=== PATIENT | male | born 1970 | race American Indian/Alaskan Native ===

== ENCOUNTER 2020-09-25 05:59 | Day surgery (SDC) | payer OTHER ==
[2020-09-25] MEDS ORDERED: LACTATED RINGERS 1,000 ML IV SCH (06:15)
[2020-09-25] MEDS ORDERED: BACTERIOSTATIC SODIUM CHLORIDE 0.9% 30 ML VIAL INFILTRATI ONE (06:17)
[2020-09-25] MEDS ORDERED: EPINEPHrine 30 MG/30 ML INJ IV ONE (07:07)
[2020-09-25] MEDS ORDERED: BUPIVACAINE-EPINEPHRINE/PF 0.5%-1:200,000 (30 ML) VIAL INFILTRATI ONE (07:11)
[2020-09-25] MEDS ORDERED: LIDOCAINE (1%) 10 MG/1 ML VIAL 20 ML MDV ONE (07:11)
[2020-09-25] MEDS ORDERED: HYDROmorphone 1 MG/1 ML INJ ONE (07:11)
[2020-09-25] MEDS ORDERED: propofoL 200 MG/20 ML VIAL IV ONE (07:11)
[2020-09-25] MEDS ORDERED: LIDOCAINE MPF (2%) 20 MG/1 ML VIAL 5 ML ONE (07:11)
--- NOTE | 2020-09-25 07:11 | Anesthesia Day of Surgery ---
Anesthesia Day of Surgery - Day of Surgery Patient Examined: Yes Patient H&P Reviewed: Yes Patient is NPO: Yes Beta Blockers: No Cardiac Clearance: No Pulmonary Clearance: No Reginald's Test: N/A
--- NOTE | 2020-09-25 07:12 | Anesthesia Consultation ---
Anesthesia Consult and Med Hx Date of service: 09/25/20 (excellent mouth opening, large neck) - Airway Anesthetic Teeth Evaluation: Good ROM Head & Neck: Adequate Mental/Hyoid Distance: Adequate Mallampati Class: Class I Intubation Access Assessment: Probably Good - Pulmonary Exam CTA: Yes - Cardiac Exam Cardiac Exam: RRR - Pre-Operative Health Status ASA Pre-Surgery Classification: ASA3 Proposed Anesthetic Plan: General - Pulmonary Hx Smoking: No Hx Asthma: No COPD: No Hx Sleep Apnea: No (EMILEE PRE SCREEN HIGH RISK) - Cardiovascular System Hx Hypertension: Yes (DOES NOT TAKE MEDS ) Hx Heart Attack/AMI: No Hx Angina: No - Central Nervous System Hx Seizures: No CVA: No Hx Psychiatric Problems: No - Gastrointestinal Hx Gastroesophageal Reflux Disease: No - Endocrine Hx Renal Disease: No Hx Insulin Dependent Diabetes: No Hx Non-Insulin Dependent Diabetes: No - Other Systems Hx Cancer: No Hx Obesity: Yes - Additional Comments Anesthesia Medical History Comments: 1st sx
[2020-09-25] MEDS ORDERED: fentaNYL 100 MCG/2 ML INJ ONE (07:14)
[2020-09-25] MEDS: fentaNYL 100 MCG/2 ML INJ IV SCH ×2 (07:21→07:31)
[2020-09-25] MEDS ORDERED: MIDAZOLAM 2 MG/2 ML INJ IV NR (08:00)
[2020-09-25] MEDS ORDERED: ROCURONIUM 50 MG/5 ML INJ IV ONE (08:06)
[2020-09-25] MEDS ORDERED: GLYCOPYRROLATE 0.4 MG/2 ML INJ ONE ×2 (08:06→09:30)
[2020-09-25] MEDS ORDERED: PHENYLEPHRINE/NS 1,000 MCG/10 ML SYRINGE (OR USE) IV ONE (08:37)
[2020-09-25] MEDS ORDERED: .SODIUM CHLORIDE 0.9% IRRIG SOLN 3000 ML IR ONE (09:05)
[2020-09-25] MEDS ORDERED: SODIUM CHLORIDE 0.9% IRRIG SOLN 2000 ML IR ONE (09:24)
[2020-09-25] MEDS ORDERED: ONDANSETRON 4 MG/2 ML INJ ONE (09:30)
[2020-09-25] MEDS ORDERED: NEOSTIGMINE 10MG/10 ML INJ MDV ONE (09:30)
[2020-09-25] MEDS ORDERED: KETOROLAC 30 MG/1 ML INJ ONE (09:35)
[2020-09-25] MEDS ORDERED: ONDANSETRON 4 MG/2 ML INJ IV PRN (09:51)
[2020-09-25] MEDS ORDERED: HYDROmorphone 1 MG/1 ML INJ IV PRN ×2 (09:51)
--- NOTE | 2020-09-25 09:56 | Short Stay Summary ---
Short Stay Documentation Date of service: 09/25/20 - History H&P: obtained from office - Allergies and Medications Current Medications: Allergies No Known Allergies Allergy (Verified 09/18/20 12:15) Home Medications Medication Instructions Recorded Confirmed Last Taken Type No Known Home Medications [No 08/03/20 09/18/20 Unknown History Reported Home Medications] Active Medications Fentanyl (Fentanyl 100 Mcg/2 Ml Inj) 100 mcg IV PREOP MENDY Stop: 09/25/20 18:00 Last Admin: 09/25/20 07:31 Dose: 50 mcg Documented by: Hydromorphone HCl (Hydromorphone 1 Mg/1 Ml Inj) 0.25 mg IV Q10MIN PRN PRN Reason: Pain, Moderate (4-6) Hydromorphone HCl (Hydromorphone 1 Mg/1 Ml Inj) 0.5 mg IV Q10MIN PRN PRN Reason: Pain , Severe (7-10) Cefazolin Sodium 3 gm/ Sodium (Chloride) 100 mls @ 100 mls/30 min IV PREOP NR; Protocol Stop: 09/25/20 21:00 Lactated Ringer's (Lactated Ringers) 1,000 mls @ 100 mls/hr IV DIRECT MENDY Last Admin: 09/25/20 06:45 Dose: 100 mls/hr Documented by: Midazolam HCl (Midazolam 2 Mg/2 Ml Inj) 2 mg IV PREOP NR Stop: 09/25/20 23:59 Last Admin: 09/25/20 07:21 Dose: 2 mg Documented by: Ondansetron HCl (Ondansetron 4 Mg/2 Ml Inj) 4 mg IV ONCE PRN PRN Reason: Nausea And Vomiting - Brief post op/procedure progress note Date of procedure: 09/25/20 Pre-op diagnosis: persistent left shoulder pain partial rotator cuff tear Post-op diagnosis: other (persistent left shoulder pain, AC joint hypertrophy, partial rotator cuff tear, partial biceps tear, wear of the superior and postieror labrum) Procedure: left shoulder arthroscopy subacromial decompression distal clavicle excision debriedment of partial rotator cuff tear, debridement of wear of the superior and posterior labrum, debridement of partial biceps tear, debridement of extensive subacromial bursitis Anesthesia: GETA Findings: as above Surgeon: SYED ROCHA Estimated blood loss: minimal Pathology: none Condition: stable - Hospital course Hospital course: no perioperative complications - Disposition Condition at discharge: Good Disposition: DC-01 TO HOME OR SELFCARE Short Stay Discharge Plan Follow up with: Maximino TONY MD [Primary Care Provider] - 7 Days
--- NOTE | 2020-09-25 10:30 | Operative Report ---
PREOPERATIVE DIAGNOSES: Persistent left shoulder pain, acromioclavicular joint hypertrophy, partial-thickness rotator cuff tear. POSTOPERATIVE DIAGNOSES: Persistent left shoulder pain, acromioclavicular joint hypertrophy, partial-thickness articular-sided rotator cuff tear, partial biceps tear, wear of the superior and posterior labrum, extensive subacromial bursitis. OPERATIVE PROCEDURE: Left shoulder arthroscopy, subacromial decompression, distal clavicle excision, debridement of extensive subacromial bursitis, debridement of partial thickness rotator cuff tear, debridement of partial biceps tear, debridement of wear of the superior and posterior labrum. SURGEON: Barry Duran MD METHODS SPECIALIST: Anna. PREOPERATIVE ANTIBIOTICS: Ancef 3 grams IV within 1 hour of skin incision. DVT PROPHYLAXIS: Open toe, thigh-high compression stockings and SCD pumps to bilateral lower extremities. OPERATIVE INSTRUMENTATION: None. OPERATIVE COMPLICATIONS: None. ESTIMATED BLOOD LOSS: Minimal. OPERATIVE HISTORY AND PHYSICAL: This is a 51-year-old male who has had persistent progressively worsening left shoulder pain that is markedly limiting his activities of daily living. The left shoulder pain failed to improve despite extensive nonoperative treatment. After failing to improve with nonoperative treatment, the patient opted to proceed with operative intervention. This will entail a left shoulder arthroscopy, subacromial decompression, distal clavicle excision, possible rotator cuff repair and surgery as indicated. The risks of which were discussed to include but not exclusive of infection, blood loss, nerve damage, loss of range of motion and persistent pain. The patient expressed understanding. All of his questions were answered and he wished to proceed with operative intervention. DESCRIPTION OF PROCEDURE: The patient was seen in the preoperative holding room area, at which point, informed consent was reviewed and appropriate left upper extremity was identified and then marked. Anesthesia then performed an interscalene block of the left upper extremity. After confirmation of adequate analgesia of the left upper extremity, the patient was then brought back to the operating room and placed supine on the standard operating room table with the beach chair positioner already in place. General anesthesia was then administered and an endotracheal tube was inserted. After confirmation of adequate general anesthesia, we then made sure that all bony prominences were well padded that there were no wrinkles in the compression stockings on bilateral lower extremities and SCD pumps were applied to bilateral lower extremities. The patient was then sat up in the beach chair position using the beach chair positioner, which was already in place. The head was secured in a nice neutral position. The well right arm was secured in a neutral position as well at the patient's side with the aid of the well arm capone. The left upper extremity was then examined under anesthesia. The patient was seen to have full range of motion without any evidence of instability. Following the examination under anesthesia, the left upper extremity was then prepped and draped in the usual sterile fashion. After prepping and draping, a timeout was called and the appropriate left upper extremity was identified, which again had been marked in the preoperative holding room area. We began our procedure by first making our standard posterior portal with a #15 blade. Once the portal was established, the cannula with the blunt trocar was inserted into the intraarticular aspect of the glenohumeral joint. Once in the glenohumeral joint we saw that there was significant wear of the superior and posterior labrum. There was a partial tear of the long head of the biceps tendon encompassing approximately 10-15% of the width of the tendon directly at the superior labral origin. There was normal articular cartilage of the glenohumeral joint. There was a negative drive-through sign. Inspection of subscapularis tendon showed it to be intact and stable when probed. There were no loose bodies in the axillary recess. Inspection of the rotator cuff showed to be a partial thickness rotator cuff tear, articular side, encompassing both the supraspinatus as well as infraspinatus tendons encompassing approximately 15-20% of the width of the tendon. This was gently debrided in standard fashion using a 4.0 meniscal shaver. We also debrided the partial biceps tear as well as the wear of the superior and posterior labrum in standard fashion using a 4.0 meniscal shaver. Following this, the arthroscopic pump was turned off making sure there was good hemostasis and once this was confirmed, the extraneous fluid was suctioned from the glenohumeral joint using the arthroscopic cannula. Following this, all the arthroscopic instrumentation was removed and then placed in the subacromial space. Once in the subacromial space, we saw there was severe extensive subacromial bursitis. The arm was placed to full range of motion under direct arthroscopic visualization. We saw there was severe impingement of the rotator cuff upon undersurface of both the acromion and the distal clavicle. The extensive subacromial bursitis was removed using the 4.0 meniscal shaver and hemostasis was achieved with the [employer] ablation wand. Once this was completed, the soft tissue was removed from the undersurface of the acromion using the [employer] ablation wand. Once completed, the 4.0 hooded barrel bur was used to carry out a subacromial decompression in standard fashion going from inferior to superior, posterior to anterior, making sure not to leave any residual anterior hook, making careful attention to cauterize the acromial branch of the thoracoacromial artery. Inspection of distal clavicle showed there to be inferior spurs causing severe impingement of the rotator cuff also contributing to impingement as the arm was placed to full range of motion under direct arthroscopic visualization. The distal clavicle excision was then performed to a depth of approximately 6-8 mm using the 4.0 hooded barrel bur. Following this, the arm was again placed through a full range of motion. We saw there was no further impingement of the rotator cuff upon the undersurface of the acromion or the distal clavicle under direct arthroscopic visualization. Following this, we turned our attention to the bursal side of the rotator cuff. This was seen to be intact and stable when probed as well as through a full arc of range of motion and was completed. The arthroscopic pump was turned off to make sure there was appropriate hemostasis and once this was confirmed, the extraneous fluid was suctioned from the subacromial space. Following this, all the arthroscopic instrumentation was removed from the subacromial space The 3 portals were then closed with 3-0 nylon in a simple fashion. Adaptic, 4 x 4's, ABD, Medipore tape was applied. The small abduction sling was applied. The patient was then sat down from the beach chair into the supine position and was awakened from general anesthesia without complications and taken to recovery room in stable condition and standard postoperative orders were written. JOB# [id number] JER/KALEB
[2020-09-25 11:22] VITALS: BP 138/90
--- NOTE | 2020-09-25 15:30 | Post Anesthesia Evaluation ---
- Post Anesthesia Evaluation Patient Participated: Yes Airway Patent: Yes Stable Respiratory Function: Yes Nausea/Vomiting: No Temp > 96.8F: Yes Pain Manageable: Yes Adequeate Hydration: Yes Anesthesia Complications: No Block Receding Appropriately: Yes Patient on Ventilator: No
== END 2020-09-25 11:50 | disposition home or self-care (01) ==
LOC: OR 05:59
PROVIDERS: ATTEND Orthopaedic Surgery
DX: M25.512 Pain in left shoulder (principal); Z20.822 Contact with and (suspected) exposure to COVID-19; M75.102 Unspecified rotator cuff tear or rupture of left shoulder, not specified as traumatic; M75.52 Bursitis of left shoulder; S43.492A Other sprain of left shoulder joint, initial encounter; I10 Essential (primary) hypertension; E66.9 Obesity, unspecified; Z98.890 Other specified postprocedural states; Z68.42 Body mass index [BMI] 45.0-49.9, adult; Z79.899 Other long term (current) drug therapy; X58.XXXA Exposure to other specified factors, initial encounter; Y93.89 Activity, other specified; Y92.89 Other specified places as the place of occurrence of the external cause; Y99.8 Other external cause status
CPT/HCPCS: 29823; 29824; 29826; A4217; J0171; J0690; J1170; J1885; J2250; J2370; J2405; J2704; J2710; J3010; J3490; J7120; L1830; U0003